=== PATIENT | male | born 1980 | race Hispanic/Latino ===

== ENCOUNTER 2021-03-29 18:42 | Emergency (ER) | payer OTHER ==
[~2021-03-29] VITALS: Ht 175.3 cm; Wt 96.2 kg
[2021-03-29] MEDS ORDERED: MORPHINE 2 MG SYG IVP ONE (19:30)
[2021-03-29 19:51] LABS: BASOPHILS % (AUTO) 0.7 % (0.0-5.0); EOSINOPHILS % (AUTO) 3.7 % (0.0-8.0); HEMATOCRIT 38.9 % (42-54); LYMPHOCYTES % (AUTO) 28.5 % (21.0-51.0); MEAN CORPUSCULAR HEMOGLOBIN 28.8 pg (27.0-33.0); MEAN CORPUSCULAR HGB CONC 34.2 g/dL (32.0-36.0); MEAN CORPUSCULAR VOLUME 84.2 fL (79-99); MONOCYTES % (AUTO) 10.9 % (3.0-13.0); NEUTROPHILS % (AUTO) 55.5 % (40.0-77.0); PLATELET COUNT (AUTO) 238 K/uL (130-400); RED BLOOD CELL COUNT(AUTO) 4.62 MIL/uL (4.50-6.20); RED CELL DISTRIBUTION WIDTH 11.9 % (11.0-15.5); WHITE BLOOD COUNT (AUTO) 8.4 K/uL (4.8-10.8)
[2021-03-29] MEDS ORDERED: IBUPROFEN 600 MG TABLET PO ONE (20:00)
[2021-03-29 20:08] LABS: CREATININE 0.9 mg/dL (0.5-1.5); POTASSIUM 4.2 mmol/L (3.5-5.1)
[2021-03-29 20:13] LABS: ALBUMIN 3.5 g/dL (3.5-5.0); BILIRUBIN,TOTAL 0.5 mg/dL (0.2-1.0); CRP QUANTITATIVE 74.9 mg/L (0.00-9.0); TOTAL PROTEIN, SERUM 8.2 g/dL (6.0-8.3)
[2021-03-29] MEDS ORDERED: 0.9% NACL 500ML IV.SOLN 500 ML IV ONE (20:30)
[2021-03-29] MEDS ORDERED: IOHEXOL-350 75 ML VIAL IV ONE (20:34)
[2021-03-29] MEDS ORDERED: AMOX-426 PO (22:21)
[2021-03-29] MEDS ORDERED: CLOT15CR23 TP (22:23)
[2021-03-29] MEDS ORDERED: CEFTRIAXONE 1G VIAL IVP ONE (22:30)
[2021-03-29 23:15] LABS: APPEARANCE,URINE Clear (CLEAR); BILIRUBIN,URINE Negative (NEGATIVE); COLOR,URINE Yellow (YELLOW); GLUCOSE, URINE (UA) >=1000 mg/dL (NEGATIVE); KETONES,URINE Trace mg/dL (NEGATIVE); LEUKOCYTE ESTERASE ,URINE Negative (NEGATIVE); NITRATE,URINE Negative (NEGATIVE); OCCULT BLOOD,URINE Negative (NEGATIVE); PH,URINE 5.5 (5.0-8.0); PROTEIN,URINE POS 1+ mg/dL (NEGATIVE)
[2021-03-29 23:25] LABS: BACTERIA,URINE Few /HPF (None Seen)
[2021-03-30 00:26] VITALS: BP 115/78
== END 2021-03-30 00:28 | disposition home or self-care (01) ==
LOC: EDH 18:42
DX: B37.42 Candidal balanitis (principal); L04.1 Acute lymphadenitis of trunk; E11.9 Type 2 diabetes mellitus without complications; E11.65 Type 2 diabetes mellitus with hyperglycemia; E78.00 Pure hypercholesterolemia, unspecified; I10 Essential (primary) hypertension; Z79.899 Other long term (current) drug therapy
CPT/HCPCS: 36415; 74177; 80053; 81001; 85025; 86140; 87486; 87797; 96361; 96374; 96375; 99285; J0696; Q9967

== ENCOUNTER 2021-05-29 02:29 | Emergency (ER) | payer OTHER ==
[~2021-05-29] VITALS: Ht 175.3 cm; Wt 97.5 kg
[~2021-05-29 02:29] MED LIST: AMOX-426 PO; CLOT15CR23 TP
[2021-05-29 03:28] LABS: BASOPHILS % (AUTO) 0.4 % (0.0-5.0); EOSINOPHILS % (AUTO) 2.1 % (0.0-8.0); HEMATOCRIT 40.8 % (42-54); LYMPHOCYTES % (AUTO) 39.9 % (21.0-51.0); MEAN CORPUSCULAR HEMOGLOBIN 29.1 pg (27.0-33.0); MEAN CORPUSCULAR HGB CONC 33.8 g/dL (32.0-36.0); MEAN CORPUSCULAR VOLUME 85.9 fL (79-99); MONOCYTES % (AUTO) 13.1 % (3.0-13.0); NEUTROPHILS % (AUTO) 43.8 % (40.0-77.0); PLATELET COUNT (AUTO) 204 K/uL (130-400); RED BLOOD CELL COUNT(AUTO) 4.75 MIL/uL (4.50-6.20); RED CELL DISTRIBUTION WIDTH 12.7 % (11.0-15.5); WHITE BLOOD COUNT (AUTO) 6.8 K/uL (4.8-10.8)
[2021-05-29 03:42] LABS: ALBUMIN 3.7 g/dL (3.5-5.0); BILIRUBIN,TOTAL 0.6 mg/dL (0.2-1.0); CREATININE 0.8 mg/dL (0.5-1.5); POTASSIUM 4.2 mmol/L (3.5-5.1); TOTAL PROTEIN, SERUM 7.7 g/dL (6.0-8.3)
[2021-05-29] MEDS ORDERED: 0.9% NACL 500ML IV.SOLN 500 ML IV ONE (04:30)
[2021-05-29] MEDS ORDERED: INSULIN HUMULIN R 100 UNIT/ML 3ML IV ONE (04:30)
[2021-05-29] MEDS ORDERED: INSULIN HUMULIN R 100 UNIT/ML 3ML ONE (04:33)
[2021-05-29 05:42] LABS: BILIRUBIN,URINE Negative (NEGATIVE); COLOR,URINE Yellow (YELLOW); GLUCOSE, URINE (UA) >=1000 mg/dL (NEGATIVE); KETONES,URINE Negative (NEGATIVE); LEUKOCYTE ESTERASE ,URINE Moderate (NEGATIVE); NITRATE,URINE Negative (NEGATIVE); OCCULT BLOOD,URINE Negative (NEGATIVE); PH,URINE 5.5 (5.0-8.0); PROTEIN,URINE Negative (NEGATIVE); UROBILINOGEN,URINE 0.2 mg/dL (0.2-1.0)
[2021-05-29 05:47] VITALS: BP 129/85
[2021-05-29 05:51] LABS: AMPHET/METH SCREEN,URINE NEGATIVE (NEGATIVE); APPEARANCE,URINE SLIGHTLY CLOUDY (CLEAR); BARBITURATE SCREEN, URINE NEGATIVE (NEGATIVE); BENZODIAZEPINES SCREEN,URINE NEGATIVE (NEGATIVE); CANNABINOID SCREEN,URINE NEGATIVE (NEGATIVE); COCAINE SCREEN,URINE NEGATIVE (NEGATIVE); OPIATE SCREEN,URINE NEGATIVE (NEGATIVE); PHENCYCLIDINE SCREEN,URINE NEGATIVE (NEGATIVE)
[2021-05-29 05:53] LABS: BACTERIA,URINE Many /HPF (None Seen); MUCUS,URINE Moderate LPF (None Seen); RBC,URINE None Seen /HPF (0-1); SQUAMOUS EPITHELIAL CELL,UR Moderate /HPF (0-2); WBC,URINE 51-100 /HPF (0-1)
[2021-05-29] MEDS ORDERED: IBUP-2077 PO (07:09)
[2021-05-29] MEDS ORDERED: CIPR-278 PO (07:09)
== END 2021-05-29 07:53 | disposition home or self-care (01) ==
LOC: EDH 02:29
DX: E11.65 Type 2 diabetes mellitus with hyperglycemia (principal); N39.0 Urinary tract infection, site not specified; R07.89 Other chest pain; E78.00 Pure hypercholesterolemia, unspecified; I10 Essential (primary) hypertension
CPT/HCPCS: 36415; 71045; 80053; 80305; 81001; 82948 ×2; 84484; 85025; 87088; 93005; 96361; 96374; 99285; J1815; J7040

== ENCOUNTER → 2023-12-27 | Outpatient (CLI) | payer OTHER ==
[~2023-12-27] MED LIST changes: +CIPR-278 PO; +IBUP-2077 PO
== END | disposition home or self-care (01) ==
LOC: RAH 14:15
PROVIDERS: ATTEND Student in an Organized Health Care Education/Training Program
DX: S83.241A Other tear of medial meniscus, current injury, right knee, initial encounter (principal); M23.91 Unspecified internal derangement of right knee; M23.92 Unspecified internal derangement of left knee; X58.XXXA Exposure to other specified factors, initial encounter; Y93.89 Activity, other specified; Y92.89 Other specified places as the place of occurrence of the external cause; Y99.8 Other external cause status
CPT/HCPCS: 73721

== ENCOUNTER 2024-08-28 06:12 | Day surgery (SDC) | payer OTHER ==
[2024-08-26 10:26] VITALS: BP 127/83; PULSE 85; RESP 18; TEMP 97.2
[2024-08-26 10:32] LABS: BASOPHILS # (AUTO) 0.02 K/uL (0.00-0.20); BASOPHILS % (AUTO) 0.3 % (0.0-5.0); EOSINOPHILS # (AUTO) 0.26 K/uL (0.00-0.70); EOSINOPHILS % (AUTO) 3.3 % (0.0-8.0); HEMATOCRIT 42.9 % (42-54); IMMATURE GRANULOCYTE ABSOLUTE 0.04 K/uL (0-1); LYMPHOCYTES # (AUTO) 1.6 K/uL (1.0-4.8); LYMPHOCYTES % (AUTO) 19.9 % (21.0-51.0); MEAN CORPUSCULAR HEMOGLOBIN 30.3 pg (27.0-33.0); MEAN CORPUSCULAR HGB CONC 33.3 g/dL (32.0-36.0); MEAN CORPUSCULAR VOLUME 90.9 fL (79-99); MONOCYTES # (AUTO) 0.6 K/uL (0.1-1.0); MONOCYTES % (AUTO) 7.9 % (3.0-13.0); NEUTROPHILS # (AUTO) 5.4 K/uL (1.8-7.7); NEUTROPHILS % (AUTO) 68.1 % (40.0-77.0); PLATELET COUNT (AUTO) 188 K/uL (130-400); RED BLOOD CELL COUNT(AUTO) 4.72 MIL/uL (4.50-6.20); WHITE BLOOD COUNT (AUTO) 7.9 K/uL (4.8-10.8)
[2024-08-26 10:39] LABS: CREATININE 0.8 mg/dL (0.5-1.3); POTASSIUM 3.8 mmol/L (3.5-5.1)
[2024-08-26 10:43] LABS: INR 0.95 (0.85-1.15); PROTHROMBIN TIME 10.1 SEC (9.6-11.6)
[2024-08-26 10:44] LABS: PARTIAL THROMBOPLASTIN TIME 27.9 SEC (26.3-35.5)
[~2024-08-28] VITALS: Ht 175.3 cm; Wt 94.0 kg
[2024-08-28] VITALS (14 sets, daily range): BP systolic 82–136; BP diastolic 40–95; PULSE 80–103; RESP 15–19; TEMP 97.1–97.4
[2024-08-28] MEDS: 0.9%NACL 1000ML 1,000 ML IV ONE (06:11)
[~2024-08-28 06:12] MED LIST changes: -AMOX-426 PO; -CIPR-278 PO; -CLOT15CR23 TP; -IBUP-2077 PO; +TIRZ5PEN SQ
[2024-08-28] MEDS ORDERED: acetaMINOPHEN 325 MG TAB ONE (06:18)
[2024-08-28] MEDS ORDERED: FAMOTIDINE 20MG VIAL IV ONE (06:19)
[2024-08-28] MEDS ORDERED: GABAPENTIN 300 MG CAPSULE ONE (06:24)
[2024-08-28] MEDS ORDERED: LIDOCAINE PF 100MG/5ML (2%) SYRINGE 5ML ONE (06:32)
[2024-08-28] MEDS ORDERED: proPOFol 10 MG/ML 20ML VIAL IV ONE (06:33)
[2024-08-28] MEDS ORDERED: FENTanyl CITRate PF 50 MCG/1 ML 2ML VIAL ONE (06:33)
[2024-08-28] MEDS: ceFAZolin SODIUM 2 GM VIAL ONE (07:51)
[2024-08-28] MEDS ORDERED: ondanSETRON 4MG INJ ONE (07:51)
[2024-08-28] MEDS ORDERED: dexaMETHasone SOD PHOSPHATE 10MG/ML 1ML VIAL ONE (07:51)
[2024-08-28] MEDS ORDERED: ACET-2079 PO (07:56)
[2024-08-28] MEDS ORDERED: MIDAZOLAM HCL 1 MG/ML 2ML VIAL ONE (08:00)
[2024-08-28] MEDS ORDERED: phenylEPHRINE HCL 10 MG/ML 1ML VIAL IV ONE (08:03)
[2024-08-28] MEDS: BUPIvacaine/PF 0.25% 30ML VIAL IJ ONE (08:10)
--- NOTE | 2024-08-28 14:46 | OP ---
Operative Note: DATE OF PROCEDURE: 08/28/24 SURGEON: ATILIO ESPOSITO MD SPREAD CUTTER: Luciana Victoria ANESTHESIA: General ANESTHESIOLOGIST/FINISHER WALLBOARD AND PLASTERBOARD: Zaria Du PREOPERATIVE DIAGNOSIS: Right middle and index finger trigger finger POSTOPERATIVE DIAGNOSIS: Right middle and index finger trigger fingers PROCEDURE: Right middle and index finger trigger finger release ESTIMATED BLOOD LOSS: 2 cc INDICATIONS: 43-year-old male with right middle and index finger trigger finger. Patient has locking and clicking of the finger with range of motion that has become debilitating. After discussion of the risk, benefits, and alternatives, the patient voluntarily agreed to undergo the aforementioned procedure. DESCRIPTION OF PROCEDURE: Patient was properly identified in the preoperative holding area. Surgical site marking was verified and surgery consent reviewed. The patient was then taken to the operating room and placed in supine position on the OR table. After induction of general anesthesia, preoperative antibiotics were given, all bony prominences were well-padded, and a well padded tourniquet was applied but not inflated at this time. The right upper extremity was then prepped and draped in usual sterile fashion. Surgical time out was done verifying correct surgery, side, site, and location to be performed. We then began the procedure by exsanguinating the arm using an Esmarch and inflating a tourniquet to 250 mmHg. We made an approximately 1 cm long incision at the level of the A1 trina on the volar aspect of the metacarpal head for the index finger. Here we came down sharply through the subcutaneous tissue and identified the A1 trina. We then began to come through this a little bit at a time using a 15 blade with small amounts of pressure being applied. The trina was then are not released. We then checked proximally and distally with a freer elevator to ensure we had full release. The tendons were then delivered into the wound using abdominal and the center retractor. There was no significant pathologic tissue noted on the tendons. We then repeated this process for the right middle finger. We then thoroughly irrigated out the wounds with normal saline and injected the surrounding tissue with Marcaine. The wounds were then closed with 3-0 nylon interrupted simple suture pattern. Soft sterile dressing was applied with Xeroform, 4 x 4's, and Coban. The tourniquet was then deflated. The patient was then awakened from anesthesia and taken to the recovery in stable condition. ATILIO ESPOSITO MD Aug 28, 2024 14:46
== END 2024-08-28 10:10 | disposition home or self-care (01) ==
LOC: DAH 06:12
PROVIDERS: ATTEND Student in an Organized Health Care Education/Training Program
DX: M65.331 Trigger finger, right middle finger (principal); M65.321 Trigger finger, right index finger; M65.322 Trigger finger, left index finger; M79.644 Pain in right finger(s); M79.645 Pain in left finger(s); E11.9 Type 2 diabetes mellitus without complications; E78.5 Hyperlipidemia, unspecified; F43.10 Post-traumatic stress disorder, unspecified; G62.9 Polyneuropathy, unspecified; Z79.899 Other long term (current) drug therapy; Z98.890 Other specified postprocedural states
CPT/HCPCS: 80048; 85025; 85610; 85730; 36415; 26055 ×2; 82948 ×2; A4663; J7120; A4649 ×2; J3490; J3010; J1100; J7030; J0665; J2003; J2250; J2704; J2405; J2371; J0690; A6223; A5120; A4215; A4213; A4222; A4221; A4216; A4223 ×2

== ENCOUNTER → 2024-10-20 | Outpatient (CLI) | payer OTHER ==
[~2024-10-20] MED LIST changes: +ACET-2079 PO; +IOHEXOL 350 MG/ML 100ML INFUS..BTL IV ONE; +metoPROLOL tartRATE 1 MG/ML 5ML VIAL IV ONE
--- NOTE | 2024-10-20 10:48 | HMCIMG ---
CT CARDIAC ANGIO W/CONT. CCTA HISTORY: Chest pain COMPARISON: None TECHNIQUE: Multiple sequential axial images of the chest were obtained along with the CT angiogram of the chest study. Patient was given 100 cc of Omnipaque through intravenous route. FINDINGS: There is no evidence of pulmonary nodule or parenchymal disease. No pleural effusion or pericardial effusion is seen. There is no evidence of pneumothorax. There are normal size mediastinal and hilar lymph nodes. The heart is not enlarged. Degenerative changes of the thoracolumbar spine are present. IMPRESSION: 1. No evidence of pulmonary nodule or effusion is seen. Please see CT angiogram report of coronary arteries.
== END | disposition home or self-care (01) ==
LOC: RAH 08:47
PROVIDERS: ATTEND Internal Medicine Cardiovascular Disease
DX: R07.89 Other chest pain (principal); M47.815 Spondylosis without myelopathy or radiculopathy, thoracolumbar region
CPT/HCPCS: 75574; J3490; Q9967

== ENCOUNTER 2024-11-13 05:54 | Day surgery (SDC) | payer OTHER ==
[2024-11-11 14:18] LABS: IMMATURE GRANULOCYTE ABSOLUTE 0.04 K/uL (0-1); NUCLEATED RED BLOOD CELLS 0.0 % (0.0-0.19); PLATELET COUNT (AUTO) 210 K/uL (130-400); RED BLOOD CELL COUNT(AUTO) 4.65 MIL/uL (4.50-6.20); RED CELL DISTRIBUTION WIDTH 12.8 % (11.0-15.5); WHITE BLOOD COUNT (AUTO) 9.4 K/uL (4.8-10.8)
[2024-11-11 14:36] LABS: CREATININE 0.7 mg/dL (0.5-1.3); GLOMERULAR FILTR. RATE CALC 115.0 mL/min (>90); GLUCOSE,RANDOM 154.0 mg/dL (70-105); SODIUM SERUM 139.0 mmol/L (136-145); UREA NITROGEN, BLOOD 10.0 mg/dL (7-18)
[2024-11-11 14:37] LABS: INR <= 0.93 (0.85-1.15)
[2024-11-11 15:37] VITALS: BP 107/67; PULSE 86; RESP 13; TEMP 98.1
[~2024-11-13] VITALS: Ht 175.3 cm; Wt 93.5 kg
[2024-11-13] VITALS (15 sets, daily range): BP systolic 80–132; BP diastolic 36–84; PULSE 73–89; RESP 13–16; TEMP 97.3–97.8
[~2024-11-13 05:54] MED LIST changes: -ACET-2079 PO; -IOHEXOL 350 MG/ML 100ML INFUS..BTL IV ONE; -metoPROLOL tartRATE 1 MG/ML 5ML VIAL IV ONE
[2024-11-13] MEDS: 0.9%NACL 1000ML 1,000 ML IV ONE (06:28)
[2024-11-13] MEDS ORDERED: GABAPENTIN 300 MG CAPSULE ONE (06:40)
[2024-11-13] MEDS ORDERED: LIDOCAINE PF 100MG/5ML (2%) SYRINGE 5ML ONE (06:50)
[2024-11-13] MEDS ORDERED: MIDAZOLAM HCL 1 MG/ML 2ML VIAL ONE (06:56)
[2024-11-13] MEDS ORDERED: FAMOTIDINE 20MG VIAL IV ONE (07:06)
[2024-11-13] MEDS ORDERED: ACET-2079 PO (08:06)
--- NOTE | 2024-11-13 08:08 | OP ---
Operative Note: DATE OF PROCEDURE: 11/13/24 SURGEON: ATILIO ESPOSITO MD PHD INTERN: Luciana Victoria ANESTHESIA: General ANESTHESIOLOGIST/PRINTED CIRCUIT DESIGNER: Zaria Du PREOPERATIVE DIAGNOSIS: Left index trigger finger POSTOPERATIVE DIAGNOSIS: Left index trigger finger PROCEDURE: Left index trigger finger release ESTIMATED BLOOD LOSS: None INDICATIONS: 44-year-old male with left index trigger finger. Patient has locking and clicking of the finger with range of motion that has become debilitating. After discussion of the risk, benefits, and alternatives, the patient voluntarily agreed to undergo the aforementioned procedure. DESCRIPTION OF PROCEDURE: Patient was properly identified in the preoperative holding area. Surgical site marking was verified and surgery consent reviewed. The patient was then taken to the operating room and placed in supine position on the OR table. After induction of general anesthesia, preoperative antibiotics were given, all bony prominences were well-padded, and a well padded tourniquet was applied but not inflated at this time. The left upper extremity was then prepped and draped in usual sterile fashion. Surgical time out was done verifying correct surgery, side, site, and location to be performed. We then began the procedure by exsanguinating the arm using an Esmarch and inflating a tourniquet to 250 mmHg. We made an approximately 1 cm long incision at the level of the A1 trina on the volar aspect of the metacarpal head for the index finger. Here we came down sharply through the subcutaneous tissue and identified the A1 trina. We then began to come through this a little bit at a time using a 15 blade with small amounts of pressure being applied. The trina was then are not released. We then checked proximally and distally with a freer elevator to ensure we had full release. The tendons were then delivered into the wound using abdominal and the center retractor. There was no significant pathologic tissue noted on the tendons. We then thoroughly irrigated out the wounds with normal saline and injected the surrounding tissue with Marcaine. The wounds were then closed with 3-0 nylon interrupted simple suture pattern. Soft sterile dressing was applied with Xeroform, 4 x 4's, and Coban. The tourniquet was then deflated. The patient was then awakened from anesthesia and taken to the recovery in stable condition. ATILIO ESPOSITO MD Nov 13, 2024 08:08
== END 2024-11-13 09:35 | disposition home or self-care (01) ==
LOC: DAH 05:54
PROVIDERS: ATTEND Student in an Organized Health Care Education/Training Program
DX: M65.322 Trigger finger, left index finger (principal); I10 Essential (primary) hypertension; E78.5 Hyperlipidemia, unspecified; E11.9 Type 2 diabetes mellitus without complications; Z79.01 Long term (current) use of anticoagulants; Z79.899 Other long term (current) drug therapy; Z98.890 Other specified postprocedural states
CPT/HCPCS: 80048; 85025; 85610; 85730; 36415; 26055; A4600; A4663; J3490; J3010; J1100; J7030; J0665; J2003; J2250; J2704; J2405; J2371; J0690; A5120; A4215; A4223; A4222; A4221; A4649; A4930; A6223